=== PATIENT | male | born 1955 | race Caucasian/White ===

== ENCOUNTER 2020-07-24 08:24 | Outpatient (CLI) | payer MEDICARE | END 2020-07-24 08:25 | disposition home or self-care (01) | LOC: CSHMRI 08:24 | PROVIDERS: ATTEND Family Medicine | DX: R51.9 Headache, unspecified (principal); R26.89 Other abnormalities of gait and mobility; R97.20 Elevated prostate specific antigen [PSA] | CPT/HCPCS: 70551 ==

== ENCOUNTER 2021-03-04 09:49 | Outpatient (CLI) | payer MEDICARE ==
[2021-03-04 22:41] LABS: SARS-CoV-2 PCR by NAA Not Detected (NotDetected)
== END 2021-03-04 09:50 | disposition home or self-care (01) ==
LOC: CSHLAB 09:49
PROVIDERS: ATTEND Internal Medicine Pulmonary Disease
DX: Z20.822 Contact with and (suspected) exposure to COVID-19 (principal)
CPT/HCPCS: U0003; U0005

== ENCOUNTER 2021-03-09 07:41 | Outpatient (CLI) | payer MEDICARE | END 2021-03-09 07:42 | disposition home or self-care (01) | LOC: CSHCP 07:41 | PROVIDERS: ATTEND Internal Medicine Pulmonary Disease | DX: U09.9 Post COVID-19 condition, unspecified (principal); J44.9 Chronic obstructive pulmonary disease, unspecified | CPT/HCPCS: 71250; 94060; 94726; 94729; 94760 ==